=== PATIENT | female | born 1960 | race African-American/Black ===

== ENCOUNTER 2019-03-18 13:33 | Inpatient (IN) | payer BC ==
[2019-03-18 18:07] VITALS: BMI 23.6
--- NOTE | 2019-03-18 19:04 | HP ---
"COWS - Scale Resting Pulse: 1= [place] 81-100 Sweatin=Flushed/Facial Moisture Restless Observation: 0= Sits Still Pupil Size: 2= Moderately Dilated (Pupils = 4 mm) Bone or Joint Aches: 0= None (Pain is unrealted to withdrawal) Runny Nose/ Eye Tearin= None GI Upset > 30mins: 5=Frequent Vomit/Diarrhea Tremor Observation: 4= Gross Tremor/Twitching Yawning Observation: 0= None Anxiety or Irritability: 1=Feels Anxious/Irritable Goose Flesh Skin: 0=Smooth Skin COWS Score: 15 CIWA Score Nausea/Vomitin Muscle Tremors: 7-Severe,w/o Arm Extended Anxiety: 1-Mildly Anxious Agitation: 1-Slight > Activity Paroxysmal Sweats: 3 (Increased facial moisture) Orientation: 0-Oriented Tacttile Disturbances: 0-None Auditory Disturbances: 0-None Visual Disturbances: 0-None Headache: 3-Moderate CIWA-Ar Total Score: 21 - Admission Criteria OASAS Guidelines: Admission for Medically Managed Detox: Requires at least one of the followin. CIWA greater than 12 2. Seizures within the past 24 hours 3. Delirium tremens within the past 24 hours 4. Hallucinations within the past 24 hours 5. Acute intervention needed for co occurring medical disorder 6. Acute intervention needed for co occurring psychiatric disorder 7. Severe withdrawal that cannot be handled at a lower level of care (continued vomiting, continued diarrhea, abnormal vital signs) requiring intravenous medication and/or fluids 8. Patient presents the following: CIWA greater than 12 Admission Criteria Met: Admission criteria met Admitting History and Physical - Past Medical History ...LMP: 06/22/09 - Smoking History Smoking history: Never smoked Admission [facility] Chief Complaint: Here for help. I'm withdrawing and sick. Allergies/Adverse Reactions: Allergies Allergy/AdvReac Type Severity Reaction Status Date / Time No Known Allergies Allergy Verified 03/18/19 17:57 History of Present Illness: 58 yo presents w/ alcohol and heroin withdrawal symptoms, seeking detox. Utox: = RIC/MOP/BZO DIAMOND: 0.0 Heroin use began at age 44. Currently used 1 bag on Thursday03/14/19 - prior use was 3-5 bags/day. Alcohol use began at age 16. Currently drinks down to 1-2 pints/day. Last drank 03/17/19 Cocaine(crack) use began at age $100/day. Nicotine use intermittent since 20's. Current 1-2 cig Hx: multiple blackouts. Last 09/15/18. Seizure 02/23/19 - seen at [facility] -. States 6 seizure in past year. PMHx: HTN (CloNidine); Osteoarthritis (R) knee and hip. Patient w/ hx falls at home - uses a walker; pancreatitis (controlled); MHHx: Anxiety; Insomnia; Manic-Depression. Denies thoughts of harming self or others. On meds. States sees Psych @ [facility] SHx: Lives w/ mother. Unemployed. Denies legal issues Longest sobriety 2 years- 15 years ago. Search Terms: Diana Jeter, 1960 Search Date: 03/18/2019 07:00:12 PM The Drug Utilization Report below displays all of the controlled substance prescriptions, if any, that your patient has filled in the last twelve months. The information displayed on this report is compiled from pharmacy submissions to the Department, and accurately reflects the information as submitted by the pharmacies. This report was requested by: Lidia Giron | Reference #: [id number] There are no results for the search terms that you entered. Search Terms: Diana Jeter, 1960 Search Date: 03/18/2019 07:00:46 PM States Searched: [place], [place], [place], [place], [place], [place], [place], [place], [place] The Drug Utilization Report below displays the controlled substance prescriptions, if any, that were dispensed in the indicated state(s). The information displayed on this report is compiled from requests submitted to other states' PMPs, and accurately reflects the information as returned by them. Blank richardson indicate data not provided by other state. This report was requested by: Lidia Giron | Reference #: [id number] There are no results for the search terms that you entered. Exam Limitations: No Limitations - Ebola screening Have you traveled outside of the country in the last 21 days: No (N) Have you had contact with anyone from an Ebola affected area: No Have you been sick,other than usual withdrawal symptoms: No Do you have a fever: No - Review of Systems Constitutional: Chills, Changes in sleep (Difficulty falling and staying asleep - takes seroquel) EENT: reports: Blurred Vision Respiratory: reports: No Symptoms reported Cardiac: reports: No Symptoms Reported GI: reports: Diarrhea (Watery, orange/brown multiple episodes x past 2 days.), Vomiting (Vomited x 4 times today.) : reports: Burning (States evaluated at [facility] 03/17/19.) Musculoskeletal: reports: Joint Pain ((R) knee and (R) hip pain. Use walker for support.) Integumentary: reports: No Symptoms Reported Neuro: reports: Headache (Mod occipital throbbing headache), Numbness ([place] feet), Seizure (Multiple), Tremors Endocrine: reports: Increased Thirst Hematology: reports: Blood Clots (DVT 4 years ago - treated w/ blood thinners. Stopped years ago.) Psychiatric: reports: Agitated, Anxious, Depressed (Denies thoughts of harming self or others.) Patient History - Patient Medical History Hx Anemia: No Hx Asthma: No Hx Chronic Obstructive Pulmonary Disease (COPD): No Hx Cancer: No Hx Cardiac Disorders: No Hx Congestive Heart Failure: No Hx Hypertension: Yes Hx Hypercholesterolemia: No Hx Pacemaker: No HX Cerebrovascular Accident: No Hx Seizures: No Hx Dementia: No Hx Diabetes: No Hx Gastrointestinal Disorders: No Hx Liver Disease: No Hx Genitourinary Disorders: No Hx Sexually Transmitted Disorders: No Hx Renal Disease (ESRD): No Hx Thyroid Disease: No Hx Human Immunodeficiency Virus (HIV): No Hx Hepatitis C: No Hx Depression: Yes Hx Suicide Attempt: No Hx Bipolar Disorder: Yes Hx Schizophrenia: No - Patient Surgical History Past Surgical History: No Hx Neurologic Surgery: No Hx Cataract Extraction: No Hx Cardiac Surgery: No Hx Lung Surgery: No Hx Breast Surgery: No Hx Breast Biopsy: No Hx Abdominal Surgery: No Hx Appendectomy: No Hx Cholecystectomy: No Hx Genitourinary Surgery: No Hx Section: No Hx Orthopedic Surgery: No Anesthesia Reaction: No - PPD History Previous Implant?: Yes Documented Results: Negative w/proof Implanted On Prior [facility] Admission?: Yes Date: 04/29/12 Results: 05/02/12 PPD to be Administered?: Yes - Reproductive History Last Menstrual Period: 06/22/09 - Smoking Cessation Smoking history: Current some day smoker Have you smoked in the past 12 months: Yes Aproximately how many cigarettes per day: 2 Hx Chewing Tobacco Use: No Initiated information on smoking cessation: Yes 'Breaking Loose' booklet given: 03/18/19 - Substance & Tx. History Hx Alcohol Use: Yes Hx Substance Use: Yes Substance Use Type: Alcohol, Cocaine, Heroin Hx Substance Use Treatment: Yes (detox, rehab) - Substances abused Alcohol Substance route: Oral Frequency: Daily Amount used: 1PT OF VODKA Age of first use: 16 Date of last use: 03/18/19 Crack Substance route: Smoking Frequency: Daily Amount used: $80/DAY Age of first use: 38 Date of last use: 03/14/19 Heroin Substance route: Smoking Frequency: Daily Amount used: 1 BAG/DAY Age of first use: 44 Date of last use: 03/14/19 Admission Physical Exam BHS - Vital Signs Vital Signs: Vital Signs - 24 hr 03/18/19 18:02 Temperature 98.1 F Pulse Rate 92 H Respiratory 18 Rate Blood Pressure 128/94 - Physical General Appearance: Yes: Nourished, Moderate Distress, Thin, Tremorous (Gross tremors @ rest), Sweating (Increased facial moisture) HEENTM: Yes: EOMI, Hearing grossly Normal, Normocephalic, Normal Voice, EVA ( Pupils = 4 mm), Pharynx Normal Respiratory: Yes: Lungs Clear (Pulse Ox = 98 %), Normal Breath Sounds, No Respiratory Distress Neck: Yes: No masses,lesions,Nodules, Supple Breast: Yes: Breast Exam Deferred Cardiology: Yes: Regular Rhythm, Regular Rate, S1, S2 Abdominal: Yes: Flat, Soft, Increased Bowel Sounds Genitourinary: Yes: Burning (w/ urination) Back: Yes: Normal Inspection Musculoskeletal: Yes: full range of Motion, Gait Steady (w/ use of walker) Extremities: Yes: Normal Capillary Refill, Tremors (Gross tremors @ rest) Neurological: Yes: Fully Oriented, Alert, Motor Strength 5/5 Integumentary: Yes: Normal Color, Warm, Diaphoresis (Increased facial moisture) Lymphatic: Yes: Within Normal Limits - Diagnostic (1) Alcohol dependence with withdrawal, uncomplicated Current Visit: Yes Status: Acute (2) Opioid dependence with withdrawal Current Visit: Yes Status: Acute Comment: last opioid use 4 days prior to admission (3) Arthritis of joint of lower extremity Current Visit: Yes Status: Chronic Comment: Uses a walker (4) Essential hypertension Current Visit: Yes Status: Chronic (5) Cocaine dependence Current Visit: Yes Status: Chronic Cleared for Admission BHS - Detox or Rehab Detox Regimen/Protocol: Clonidine/Librium Claeared for Rehab Admission: No Breathalyzer - Breathalyzer Breathalyzer: 0 Urine Drug Screen - Test Device Lot number: [id number] Expiration date: 10/22/20 - Control Is test valid?: Yes - Results Drug screen NEGATIVE: No Urine drug screen results: RIC-Cocaine, MOP-Opiates, BZO-Benzodiazepines Inpatient Rehab Admission - Rehab Decision to Admit Inpatient rehab admission?: No"
[2019-03-18] MEDS ORDERED: MAGNESIUM HYDROX 2400MG/30ML ORAL SUSPENSION 30 ML CUP PO PRN (20:12)
[2019-03-18] MEDS ORDERED: MAG HYDROX/AL HYDROX/SIMETH 30 ML UNIT-DOSE CUP PO PRN (20:12)
[2019-03-18] MEDS ORDERED: NICOTINE POLACRILEX 2 MG GUM BUC PRN (20:12)
[2019-03-18] MEDS ORDERED: chlordiazePOXIDE HCL 10 MG CAPSULE PO PRN (20:12)
[2019-03-18] MEDS ORDERED: ACETAMINOPHEN 325 MG TABLET (FP) PO PRN ×2 (20:12)
[2019-03-18] MEDS ORDERED: MENTHOL/PHENOL 1 EACH UD MM PRN (20:12)
[2019-03-18] MEDS ORDERED: MAGNESIUM CITRATE 300 ML BOTTLE PO PRN (20:12)
[2019-03-18] MEDS ORDERED: ONDANSETRON *ODT* 4 MG TABLET SL PRN (20:31)
[2019-03-18] MEDS: DIVALPROEX SODIUM 500 MG TABLET E.C. PO SCH (21:33)
[2019-03-18] MEDS: chlordiazePOXIDE 5 MG CAPSULE PO SCH (21:33)
[2019-03-18] MEDS: cloNIDine HCL 0.1 MG TABLET PO SCH (21:33)
[2019-03-18] MEDS: THIAMINE HCL 100 MG TABLET (FP) PO SCH (22:03)
[2019-03-18] MEDS ORDERED: QUEtiapine FUMARATE 50 MG TABLET PO ONE (23:00)
[2019-03-19] MEDS: cloNIDine HCL 0.1 MG TABLET PO SCH ×3 (05:37→22:33)
[2019-03-19] MEDS: BISMUTH SUBSALICYLATE 524 MG/30 ML UD PO PRN ×3 (05:37→22:37)
[2019-03-19] MEDS: chlordiazePOXIDE 5 MG CAPSULE PO SCH ×3 (05:37→22:32)
[2019-03-19] MEDS: IBUPROFEN 400 MG TABLET (FP) PO PRN (05:38)
--- NOTE | 2019-03-19 10:23 | CONSULT ---
[facility] Psychiatric Consult - Data Date of interview: 03/19/19 Admission source: [facility] Identifying data: Readmission to [facility] for this 58 y/o AA female self- referred for detoxification treatment (ALONSO issues : alcohol, heroin, cocaine, nicotine). Interviewed at [address] [place] [address]. Patient is single, a mother of two, domiciled , unemployed and supported on SSI benefits. Substance Abuse History: Discussed with the patient. Details in current [facility] report as follows : Smoking history: Current some day smoker. Have you smoked in the past 12 months: Yes. Aproximately how many cigarettes per day: 2. Hx Chewing Tobacco Use: No. Initiated information on smoking cessation: Yes. ' Breaking Loose' booklet given: 03/18/19. - Substance & Tx. History. Hx Alcohol Use: Yes. Hx Substance Use: Yes. Substance Use Type: Alcohol, Cocaine , Heroin. Hx Substance Use Treatment: Yes (detox, rehab). - Substances abused. Alcohol. Substance route: Oral. Frequency: Daily. Amount used: 1PT OF VODKA. Age of first use: 16. Date of last use: 03/18/19. Crack. Substance route: Smoking. Frequency: Daily. Amount used: $80/DAY. Age of first use: 38. Date of last use: 03/14/19. Heroin. Substance route: Smoking. Frequency: Daily. Amount used: 1 BAG/DAY. Age of first use: 44. Date of last use: 03/14/19 Medical History: Remarkable for hypertension, seizure disorder, antecedent of pancreatitis and osteoarthritis. Patient ambulates with a walker. Psychiatric History: Patient admits to a history of 4-5 psychiatric hospitalizations. She is known to [place] [facility]. Diagnosed with Bipolar Disorder. Ms Jeter reports her medications as seroquel 100 mg/tid + 200 mg/hs + depakote 500 mg/bid + risperdal 4 mg/bid + klonopin (dose not recalled). Patient indicates that she was placed on this regimen during her stay at [facility]. Questionable adherence to OPD care (unclear about her outpatient prescriber). Patient admits to a distant history of suicide attempts (age 9 : wrist-cutting). Physical/Sexual Abuse/Trauma History: Patient denies. Additional Comment: Urine drug screen results: RIC-Cocaine, MOP-Opiates, BZO- Benzodiazepines. Noted. Mental Status Exam - Mental Status Exam Alert and Oriented to: Time, Place, Person Cognitive Function: Good Patient Appearance: Well Groomed Mood: Withdrawn, Hopeful Affect: Mood Congruent Patient Behavior: Fatigued, Cooperative Speech Pattern: Clear Voice Loudness: Normal Thought Process: Goal Oriented Thought Disorder: Not Present Hallucinations: Denies Suicidal Ideation: Denies Homicidal Ideation: Denies Insight/Judgement: Poor Sleep: Poorly, Difficulty falling asleep Appetite: Good Gait/Station: Other (walks with a walker) Psychiatric Findings - Problem List ([place] 1, 2,3) (1) Alcohol dependence with withdrawal, uncomplicated Current Visit: Yes Status: Acute (2) Opioid dependence with withdrawal Current Visit: Yes Status: Acute Comment: last opioid use 4 days prior to admission (3) Cocaine dependence Current Visit: Yes Status: Chronic (4) History of bipolar disorder Current Visit: Yes Status: Chronic (5) Insomnia Current Visit: Yes Status: Chronic - Initial Treatment Plan Initial Treatment Plan: Psychoeducation. Sleep hygiene. Detoxification. Medications reduced to avoid oversedation : seroquel 50 mg po bid. Risperdal is held. Side effects/benefits discussed with the patient. Ms Jeter agrees with this plan of care. She provided verbal consent to MD. Attempt made to contact [id number] for verification of medications ([phone]) : no response. Depakote level. Observation.
[2019-03-19] MEDS ORDERED: QUEtiapine FUMARATE 50 MG TABLET PO ONE (10:39)
[2019-03-19] MEDS: PRENATAL VITAMINS W/ FOLIC ACID TABLET (FP) PO SCH (11:03)
[2019-03-19] MEDS: DIVALPROEX SODIUM 500 MG TABLET E.C. PO SCH ×2 (11:03→22:32)
[2019-03-19 12:24] LABS: ALBUMIN 2.6 g/dl (3.4-5.0); BILIRUBIN,TOTAL 0.1 mg/dL (0.2-1); BLOOD UREA NITROGEN 20.7 mg/dL (7-18); CALCIUM 8.4 mg/dL (8.5-10.1); CREATININE 0.8 mg/dL (0.55-1.3); POTASSIUM 3.9 mmol/L (3.5-5.1); TOT PROT 6.2 g/dl (6.4-8.2)
[2019-03-19 12:33] LABS: HEMATOCRIT 27.8 % (32.4-45.2); HEMOGLOBIN 9.1 GM/dL (10.7-15.3); MCH 28.6 pg (25.7-33.7); MCHC 32.7 g/dl (32.0-36.0); MEAN CELL VOLUME 87.3 fl (80-96); MEAN PLT VOLUME 8.1 fl (7.5-11.1); PLATELET COUNT 253 K/MM3 (134-434); RBC 3.19 M/mm3 (3.60-5.2); RDW 18.4 % (11.6-15.6); WHITE BLOOD COUNT 4.5 K/mm3 (4.0-10.0)
--- NOTE | 2019-03-19 14:08 | EKG ---
Test Reason : Blood Pressure : / mmHG Vent. Rate : 071 BPM Atrial Rate : 071 BPM P-R Int : 126 ms QRS Dur : 092 ms QT Int : 394 ms P-R-T Axes : 018 055 054 degrees QTc Int : 428 ms NORMAL SINUS RHYTHM NORMAL ECG NO PREVIOUS ECGS AVAILABLE Confirmed by LYNDSEY GUEVARA, ART ([id number]) on 03/19/2019 2:08:30 PM Referred By: Confirmed By:ART SOLORIO MD
--- NOTE | 2019-03-19 17:57 | PN ---
S CIWA - CIWA Score Nausea/Vomitin (Diarrhea.) Muscle Tremors: None Anxiety: 3 Agitation: 2 Paroxysmal Sweats: No Perspiration Orientation: 0-Oriented Tacttile Disturbances: 2-Mild Itch/Numbness/Burn Auditory Disturbances: 0-None Visual Disturbances: 2-Mild Sensitivity Headache: 0-None Present CIWA-Ar Total Score: 12 BHS COWS - Scale Resting Pulse: 0= [place] 80 or Below Sweatin= Chills/Flushing Restless Observation: 0= Sits Still Pupil Size: 0= Normal to Room Light Bone or Joint Aches: 4=Acute Joint/Muscle Pain Runny Nose/ Eye Tearin= None GI Upset > 30mins: 2= Nausea/Diarrhea Tremor Observation of Outstretched Hands: 2= Slight Tremor Visible Yawning Observation: 1= 1-2x During Session Anxiety or Irritability: 2=Irritable/Anxious Goose Flesh Skin: 0=Smooth Skin COWS Score: 12 S Progress Note (SOAP) Subjective: Body Aches, Eye Tearing, Diarrhea, Tremors. Objective: PATIENT A & O X 3, OBSERVED AMBULATING ON DETOX UNIT UNASSISTED. IN NO ACUTE DISTRESS. 03/19/19 17:57 Vital Signs Temperature 98.1 F 03/19/19 10:00 Pulse Rate 80 03/19/19 10:00 Respiratory Rate 18 03/19/19 10:00 Blood Pressure 118/76 03/19/19 10:00 O2 Sat by Pulse Oximetry (%) Laboratory Tests 03/19/19 03/19/19 03/19/19 07:55 07:55 07:55 WBC 4.5 RBC 3.19 L Hgb 9.1 L Hct 27.8 L D MCV 87.3 MCH 28.6 D MCHC 32.7 RDW 18.4 H Plt Count 253 D MPV 8.1 Sodium 142 Potassium 3.9 Chloride 108 H Carbon Dioxide 28 Anion Gap 7 L BUN 20.7 H Creatinine 0.8 Est GFR (CKD-EPI)AfAm 93.53 Est GFR (CKD-EPI)NonAf 80.70 Random Glucose 109 H Calcium 8.4 L Total Bilirubin 0.1 L AST 13 L ALT 9 L Alkaline Phosphatase 103 Total Protein 6.2 L Albumin 2.6 L Valproic Acid 7.4 L RPR Titer 03/19/19 07:55 WBC RBC Hgb Hct MCV MCH MCHC RDW Plt Count MPV Sodium Potassium Chloride Carbon Dioxide Anion Gap BUN Creatinine Est GFR (CKD-EPI)AfAm Est GFR (CKD-EPI)NonAf Random Glucose Calcium Total Bilirubin AST ALT Alkaline Phosphatase Total Protein Albumin Valproic Acid RPR Titer Nonreactive LABS NOTED. Assessment: 03/19/19 17:58 WITHDRAWAL SYMPTOMS. ANEMIA. 03/19/19 18:00 Plan: CONTINUE DETOX. INCREASE DAILY PO WATER INTAKE. PATIENT IS CURRENTLY RECEIVING DAILY MVI CONTAINING B VITAMINS AND IRON WHILE ADMITTED FOR DETOX. REPEAT CBC TOMORROW AM TO SEE IF ANY CHANGE FORM DETOX ADMISSION CBC RESULTS.
[2019-03-19] MEDS ORDERED: QUEtiapine FUMARATE 100 MG TABLET (FP) PO SCH (22:00)
[2019-03-19] MEDS: METHOCARBAMOL 500 MG TABLET PO PRN (22:32)
[2019-03-19] MEDS: METHYL SALICYLATE/MENTHOL OINT 30 GM TUBE TP SCH (22:32)
[2019-03-19] MEDS: QUEtiapine FUMARATE 50 MG TABLET PO SCH (22:32)
[2019-03-19] MEDS: THIAMINE HCL 100 MG TABLET (FP) PO SCH (22:33)
[2019-03-19] MEDS: MELATONIN 5 MG TABLETS PO PRN (22:36)
[2019-03-20] MEDS: cloNIDine HCL 0.1 MG TABLET PO SCH ×3 (06:00→22:05)
[2019-03-20] MEDS: chlordiazePOXIDE 5 MG CAPSULE PO SCH ×3 (06:00→22:04)
[2019-03-20] MEDS: BISMUTH SUBSALICYLATE 524 MG/30 ML UD PO PRN ×3 (06:01→16:34)
[2019-03-20] MEDS: METHOCARBAMOL 500 MG TABLET PO PRN ×3 (06:02→22:07)
[2019-03-20] MEDS: IBUPROFEN 400 MG TABLET (FP) PO PRN ×3 (06:24→22:07)
[2019-03-20 10:06] LABS: BASO % 0.8 % (0-2.0); EOS % 6.3 % (0-4.5); HEMATOCRIT 27.7 % (32.4-45.2); HEMOGLOBIN 8.9 GM/dL (10.7-15.3); LYMPH % 40.1 % (8-40); MCH 28.2 pg (25.7-33.7); MCHC 32.1 g/dl (32.0-36.0); MEAN CELL VOLUME 87.8 fl (80-96); MEAN PLT VOLUME 8.2 fl (7.5-11.1); NEUT % 44.8 % (42.8-82.8); PLATELET COUNT 241 K/MM3 (134-434); RBC 3.15 M/mm3 (3.60-5.2); RDW 17.8 % (11.6-15.6); WHITE BLOOD COUNT 4.2 K/mm3 (4.0-10.0)
[2019-03-20] MEDS: DIVALPROEX SODIUM 500 MG TABLET E.C. PO SCH ×2 (10:48→22:05)
[2019-03-20] MEDS: METHYL SALICYLATE/MENTHOL OINT 30 GM TUBE TP SCH ×2 (10:48→22:04)
[2019-03-20] MEDS: PRENATAL VITAMINS W/ FOLIC ACID TABLET (FP) PO SCH (10:48)
--- NOTE | 2019-03-20 14:18 | PN ---
[facility] CIWA - CIWA Score Nausea/Vomitin-Mild Nausea/No Vomiting Muscle Tremors: 3 Anxiety: 3 Agitation: 3 Paroxysmal Sweats: 1-Minimal Palms Moist Orientation: 0-Oriented Tacttile Disturbances: 0-None Auditory Disturbances: 0-None Visual Disturbances: 0-None Headache: 0-None Present CIWA-Ar Total Score: 11 S Progress Note (SOAP) Subjective: 58 years old female admitted on 03/18/19 for alcohol withdrawal sx management treated wtih librium detox regimen patient tolerate well at this time positive opioid urine tox upon admission due to patient is using one bag of opioid and last used 03/14/19 no opioid detox regimen necessary at this time patient is alert oriented x 3 resting on bed limited conversation with staff Objective: 03/20/19 14:19 Vital Signs Temperature 98.8 F 03/20/19 13:08 Pulse Rate 87 03/20/19 13:08 Respiratory Rate 18 03/20/19 13:08 Blood Pressure 142/91 03/20/19 13:08 O2 Sat by Pulse Oximetry (%) Laboratory Last Values WBC 4.2 K/mm3 (4.0-10.0) 03/20/19 07:40 RBC 3.15 M/mm3 (3.60-5.2) L 03/20/19 07:40 Hgb 8.9 GM/dL (10.7-15.3) L 03/20/19 07:40 Hct 27.7 % (32.4-45.2) L 03/20/19 07:40 MCV 87.8 fl (80-96) 03/20/19 07:40 MCH 28.2 pg (25.7-33.7) 03/20/19 07:40 MCHC 32.1 g/dl (32.0-36.0) 03/20/19 07:40 RDW 17.8 % (11.6-15.6) H 03/20/19 07:40 Plt Count 241 K/MM3 (134-434) 03/20/19 07:40 MPV 8.2 fl (7.5-11.1) 03/20/19 07:40 Absolute Neuts (auto) 1.9 K/mm3 (1.5-8.0) 03/20/19 07:40 Neutrophils % 44.8 % (42.8-82.8) 03/20/19 07:40 Lymphocytes % 40.1 % (8-40) H 03/20/19 07:40 Monocytes % 8.0 % (3.8-10.2) 03/20/19 07:40 Eosinophils % 6.3 % (0-4.5) H 03/20/19 07:40 Basophils % 0.8 % (0-2.0) 03/20/19 07:40 Nucleated RBC % 0 % (0-0) 03/20/19 07:40 Sodium 142 mmol/L (136-145) 03/19/19 07:55 Potassium 3.9 mmol/L (3.5-5.1) 03/19/19 07:55 Chloride 108 mmol/L (98-107) H 03/19/19 07:55 Carbon Dioxide 28 mmol/L (21-32) 03/19/19 07:55 Anion Gap 7 MMOL/L (8-16) L 03/19/19 07:55 BUN 20.7 mg/dL (7-18) H 03/19/19 07:55 Creatinine 0.8 mg/dL (0.55-1.3) 03/19/19 07:55 Est GFR (CKD-EPI)AfAm 93.53 03/19/19 07:55 Est GFR (CKD-EPI)NonAf 80.70 03/19/19 07:55 Random Glucose 109 mg/dL (74-106) H 03/19/19 07:55 Calcium 8.4 mg/dL (8.5-10.1) L 03/19/19 07:55 Total Bilirubin 0.1 mg/dL (0.2-1) L 03/19/19 07:55 AST 13 U/L (15-37) L 03/19/19 07:55 ALT 9 U/L (13-61) L 03/19/19 07:55 Alkaline Phosphatase 103 U/L (45-117) 03/19/19 07:55 Total Protein 6.2 g/dl (6.4-8.2) L 03/19/19 07:55 Albumin 2.6 g/dl (3.4-5.0) L 03/19/19 07:55 Valproic Acid 7.4 ug/mL (50-100) L 03/19/19 07:55 RPR Titer Nonreactive (NONREACTIVE) 03/19/19 07:55 lab noted anemia 03/20/19 14:21 ferrous sulfate Assessment: 03/20/19 14:21 alcohol withdrawal sx Plan: continue librium detox regimen
[2019-03-20] MEDS: FERROUS SO4 325 MG TABLET (FP) PO SCH (14:47)
[2019-03-20] MEDS: THIAMINE HCL 100 MG TABLET (FP) PO SCH (22:04)
[2019-03-20] MEDS: QUEtiapine FUMARATE 50 MG TABLET PO SCH (22:05)
[2019-03-20] MEDS: MELATONIN 5 MG TABLETS PO PRN (22:08)
[2019-03-21] MEDS ORDERED: chlordiazePOXIDE HCL 10 MG CAPSULE PO PRN
[2019-03-21] MEDS ORDERED: chlordiazePOXIDE HCL 10 MG CAPSULE PO SCH (05:00)
[2019-03-21] MEDS: IBUPROFEN 400 MG TABLET (FP) PO PRN ×2 (05:05→17:35)
[2019-03-21] MEDS: METHOCARBAMOL 500 MG TABLET PO PRN ×3 (05:05→22:23)
[2019-03-21] MEDS: BISMUTH SUBSALICYLATE 524 MG/30 ML UD PO PRN ×2 (05:07→17:36)
[2019-03-21] MEDS ORDERED: diazePAM 5 MG TABLET PO PRN (09:23)
--- NOTE | 2019-03-21 09:31 | PN ---
S CIWA - CIWA Score Nausea/Vomitin-No Nausea/No Vomiting Muscle Tremors: 1-None Visible, but [place] Anxiety: 3 Agitation: 1-Slight > Activity Paroxysmal Sweats: 1-Minimal Palms Moist Orientation: 0-Oriented Tacttile Disturbances: 0-None Auditory Disturbances: 0-None Visual Disturbances: 0-None Headache: 0-None Present CIWA-Ar Total Score: 6 BHS Progress Note (SOAP) Subjective: 58 years old female admitted on 03/18/19 for alcohol withdrawal sx management treated with librium detox regimen patient requests valium detox regimen that valium works better for her alcohol withdrawal sx discontinue librium regimen begin valium regimen patient received one dose of librium around 6 am today will receive valium 5 mg around 2 pm today patient scheduled for discharge 03/22/19 discuss aftercare with patient Objective: 03/21/19 09:30 Vital Signs Temperature 97.5 F L 03/21/19 09:22 Pulse Rate 85 03/21/19 09:22 Respiratory Rate 18 03/21/19 09:22 Blood Pressure 146/80 03/21/19 09:22 O2 Sat by Pulse Oximetry (%) Laboratory Last Values WBC 4.2 K/mm3 (4.0-10.0) 03/20/19 07:40 RBC 3.15 M/mm3 (3.60-5.2) L 03/20/19 07:40 Hgb 8.9 GM/dL (10.7-15.3) L 03/20/19 07:40 Hct 27.7 % (32.4-45.2) L 03/20/19 07:40 MCV 87.8 fl (80-96) 03/20/19 07:40 MCH 28.2 pg (25.7-33.7) 03/20/19 07:40 MCHC 32.1 g/dl (32.0-36.0) 03/20/19 07:40 RDW 17.8 % (11.6-15.6) H 03/20/19 07:40 Plt Count 241 K/MM3 (134-434) 03/20/19 07:40 MPV 8.2 fl (7.5-11.1) 03/20/19 07:40 Absolute Neuts (auto) 1.9 K/mm3 (1.5-8.0) 03/20/19 07:40 Neutrophils % 44.8 % (42.8-82.8) 03/20/19 07:40 Lymphocytes % 40.1 % (8-40) H 03/20/19 07:40 Monocytes % 8.0 % (3.8-10.2) 03/20/19 07:40 Eosinophils % 6.3 % (0-4.5) H 03/20/19 07:40 Basophils % 0.8 % (0-2.0) 03/20/19 07:40 Nucleated RBC % 0 % (0-0) 03/20/19 07:40 Sodium 142 mmol/L (136-145) 03/19/19 07:55 Potassium 3.9 mmol/L (3.5-5.1) 03/19/19 07:55 Chloride 108 mmol/L (98-107) H 03/19/19 07:55 Carbon Dioxide 28 mmol/L (21-32) 03/19/19 07:55 Anion Gap 7 MMOL/L (8-16) L 03/19/19 07:55 BUN 20.7 mg/dL (7-18) H 03/19/19 07:55 Creatinine 0.8 mg/dL (0.55-1.3) 03/19/19 07:55 Est GFR (CKD-EPI)AfAm 93.53 03/19/19 07:55 Est GFR (CKD-EPI)NonAf 80.70 03/19/19 07:55 Random Glucose 109 mg/dL (74-106) H 03/19/19 07:55 Calcium 8.4 mg/dL (8.5-10.1) L 03/19/19 07:55 Total Bilirubin 0.1 mg/dL (0.2-1) L 03/19/19 07:55 AST 13 U/L (15-37) L 03/19/19 07:55 ALT 9 U/L (13-61) L 03/19/19 07:55 Alkaline Phosphatase 103 U/L (45-117) 03/19/19 07:55 Total Protein 6.2 g/dl (6.4-8.2) L 03/19/19 07:55 Albumin 2.6 g/dl (3.4-5.0) L 03/19/19 07:55 Valproic Acid 7.4 ug/mL (50-100) L 03/19/19 07:55 RPR Titer Nonreactive (NONREACTIVE) 03/19/19 07:55 lab noted anemia continue ferrous sulfate 03/21/19 09:32 Assessment: 03/21/19 09:32 alcohol withdrawaL sx Plan: continue valium detox regimen
[2019-03-21] MEDS: FERROUS SO4 325 MG TABLET (FP) PO SCH (10:26)
[2019-03-21] MEDS: PRENATAL VITAMINS W/ FOLIC ACID TABLET (FP) PO SCH (10:26)
[2019-03-21] MEDS: cloNIDine HCL 0.1 MG TABLET PO SCH ×2 (10:26→22:23)
[2019-03-21] MEDS: DIVALPROEX SODIUM 500 MG TABLET E.C. PO SCH ×2 (10:26→22:22)
[2019-03-21] MEDS: METHYL SALICYLATE/MENTHOL OINT 30 GM TUBE TP SCH ×2 (10:26→22:40)
[2019-03-21] MEDS: diazePAM 5 MG TABLET PO SCH ×2 (13:45→22:22)
[2019-03-21] MEDS: THIAMINE HCL 100 MG TABLET (FP) PO SCH (22:22)
[2019-03-21] MEDS: MELATONIN 5 MG TABLETS PO PRN (22:23)
[2019-03-22] MEDS ORDERED: diazePAM 5 MG TABLET PO ONE (05:00)
[2019-03-22] MEDS ORDERED: chlordiazePOXIDE HCL 10 MG CAPSULE PO ONE (05:00)
[2019-03-22] MEDS: METHOCARBAMOL 500 MG TABLET PO PRN ×3 (05:29→22:12)
--- NOTE | 2019-03-22 09:55 | PN ---
S CIWA - CIWA Score Nausea/Vomitin-No Nausea/No Vomiting Muscle Tremors: 1-None Visible, but [place] Anxiety: 2 Agitation: 1-Slight > Activity Paroxysmal Sweats: No Perspiration Orientation: 0-Oriented Tacttile Disturbances: 0-None Auditory Disturbances: 0-None Visual Disturbances: 0-None Headache: 0-None Present CIWA-Ar Total Score: 4 BHS Progress Note (SOAP) Subjective: 58 years old female admitted on 03/18/19 for alcohol withdrawal sx management treated with librium detox regimen report no works well continue sweating and trouble sleep at night patient appears tired resting on bed denies suicidal ideation case discuss with counselor patient is under the medical supervision today and tomorrow transportation ambulating on hallway with walker steady gait encourage change position slowly Objective: 03/22/19 10:07 Vital Signs Temperature 97.1 F L 03/22/19 09:14 Pulse Rate 75 03/22/19 09:14 Respiratory Rate 18 03/22/19 09:14 Blood Pressure 149/95 03/22/19 09:14 O2 Sat by Pulse Oximetry (%) Laboratory Last Values WBC 4.2 K/mm3 (4.0-10.0) 03/20/19 07:40 RBC 3.15 M/mm3 (3.60-5.2) L 03/20/19 07:40 Hgb 8.9 GM/dL (10.7-15.3) L 03/20/19 07:40 Hct 27.7 % (32.4-45.2) L 03/20/19 07:40 MCV 87.8 fl (80-96) 03/20/19 07:40 MCH 28.2 pg (25.7-33.7) 03/20/19 07:40 MCHC 32.1 g/dl (32.0-36.0) 03/20/19 07:40 RDW 17.8 % (11.6-15.6) H 03/20/19 07:40 Plt Count 241 K/MM3 (134-434) 03/20/19 07:40 MPV 8.2 fl (7.5-11.1) 03/20/19 07:40 Absolute Neuts (auto) 1.9 K/mm3 (1.5-8.0) 03/20/19 07:40 Neutrophils % 44.8 % (42.8-82.8) 03/20/19 07:40 Lymphocytes % 40.1 % (8-40) H 03/20/19 07:40 Monocytes % 8.0 % (3.8-10.2) 03/20/19 07:40 Eosinophils % 6.3 % (0-4.5) H 03/20/19 07:40 Basophils % 0.8 % (0-2.0) 03/20/19 07:40 Nucleated RBC % 0 % (0-0) 03/20/19 07:40 Sodium 142 mmol/L (136-145) 03/19/19 07:55 Potassium 3.9 mmol/L (3.5-5.1) 03/19/19 07:55 Chloride 108 mmol/L (98-107) H 03/19/19 07:55 Carbon Dioxide 28 mmol/L (21-32) 03/19/19 07:55 Anion Gap 7 MMOL/L (8-16) L 03/19/19 07:55 BUN 20.7 mg/dL (7-18) H 03/19/19 07:55 Creatinine 0.8 mg/dL (0.55-1.3) 03/19/19 07:55 Est GFR (CKD-EPI)AfAm 93.53 03/19/19 07:55 Est GFR (CKD-EPI)NonAf 80.70 03/19/19 07:55 Random Glucose 109 mg/dL (74-106) H 03/19/19 07:55 Calcium 8.4 mg/dL (8.5-10.1) L 03/19/19 07:55 Total Bilirubin 0.1 mg/dL (0.2-1) L 03/19/19 07:55 AST 13 U/L (15-37) L 03/19/19 07:55 ALT 9 U/L (13-61) L 03/19/19 07:55 Alkaline Phosphatase 103 U/L (45-117) 03/19/19 07:55 Total Protein 6.2 g/dl (6.4-8.2) L 03/19/19 07:55 Albumin 2.6 g/dl (3.4-5.0) L 03/19/19 07:55 Valproic Acid 7.4 ug/mL (50-100) L 03/19/19 07:55 RPR Titer Nonreactive (NONREACTIVE) 03/19/19 07:55 lab noted Assessment: 03/22/19 10:08 alcohol withdrawal sxs Plan: continue medically supervised x 1 day
[2019-03-22] MEDS: DIVALPROEX SODIUM 500 MG TABLET E.C. PO SCH ×2 (10:28→22:12)
[2019-03-22] MEDS: METHYL SALICYLATE/MENTHOL OINT 30 GM TUBE TP SCH ×2 (10:28→22:17)
[2019-03-22] MEDS: FERROUS SO4 325 MG TABLET (FP) PO SCH (10:28)
[2019-03-22] MEDS: PRENATAL VITAMINS W/ FOLIC ACID TABLET (FP) PO SCH (10:28)
[2019-03-22] MEDS: cloNIDine HCL 0.1 MG TABLET PO SCH ×2 (10:28→22:12)
[2019-03-22] MEDS: BISMUTH SUBSALICYLATE 524 MG/30 ML UD PO PRN (10:29)
[2019-03-22] MEDS: IBUPROFEN 400 MG TABLET (FP) PO PRN (10:29)
--- NOTE | 2019-03-22 18:40 | PN ---
[facility] Progress Note Note: Psychiatry Attending's note (follow-up) : Met with the patient during the day. Ms Jeter is usually seen lying in bed. Moves around with a walker. Patient asked chief writer to resume seroquel. At the specific dose of 100 mg at bedtime. Seems to be doing quite well on current regimen. No falls. Patient denies dizziness, drowziness or sedation. Mood remains stable. No psychosis. Coherent thought processes. Patient has consistently denied suicidal ideation, intent or plan. She remains future-oriented, pleasant on approach and cooperative. Vitals are normal. Valproic acid on admission = 7.4 (suggestive of non-adherence ). Will resume seroquel 50 mg po hs (patient's request). Informed consent : secured. Senior Underwriter called [id number] at [phone] for verification of medications : no response.
[2019-03-22] MEDS ORDERED: QUEtiapine FUMARATE 50 MG TABLET PO SCH (22:00)
[2019-03-22] MEDS: THIAMINE HCL 100 MG TABLET (FP) PO SCH (22:12)
[2019-03-22] MEDS: MELATONIN 5 MG TABLETS PO PRN (22:13)
[2019-03-23 09:18] VITALS: BP 128/85; PULSE 106; TEMP 97.2
--- NOTE | 2019-03-23 09:56 | DS ---
[facility] Detox Discharge Summary Admission Date: 03/18/19 Discharge Date: 03/23/19 - History Present History: Alcohol Dependence Additional Comments: 58 years old female admitted on 03/18/19 for alcohol withdrawal sx management managed with librium at first changed to valium patient tolerated wll alert oriented x 3 cardiac S1S2 regular rate rhyth respiratory clear lung bilaterally on auscultation ambulating with walker steady gait skin warm dry - Physical Exam Results Vital Signs: Vital Signs Temperature 97.2 F L 03/23/19 09:17 Pulse Rate 106 H 03/23/19 09:17 Respiratory Rate 20 03/23/19 09:17 Blood Pressure 128/85 03/23/19 09:17 O2 Sat by Pulse Oximetry (%) Pertinent Admission Physical Exam Findings: alcohol withdrawal sx Laboratory Last Values WBC 4.2 K/mm3 (4.0-10.0) 03/20/19 07:40 RBC 3.15 M/mm3 (3.60-5.2) L 03/20/19 07:40 Hgb 8.9 GM/dL (10.7-15.3) L 03/20/19 07:40 Hct 27.7 % (32.4-45.2) L 03/20/19 07:40 MCV 87.8 fl (80-96) 03/20/19 07:40 MCH 28.2 pg (25.7-33.7) 03/20/19 07:40 MCHC 32.1 g/dl (32.0-36.0) 03/20/19 07:40 RDW 17.8 % (11.6-15.6) H 03/20/19 07:40 Plt Count 241 K/MM3 (134-434) 03/20/19 07:40 MPV 8.2 fl (7.5-11.1) 03/20/19 07:40 Absolute Neuts (auto) 1.9 K/mm3 (1.5-8.0) 03/20/19 07:40 Neutrophils % 44.8 % (42.8-82.8) 03/20/19 07:40 Lymphocytes % 40.1 % (8-40) H 03/20/19 07:40 Monocytes % 8.0 % (3.8-10.2) 03/20/19 07:40 Eosinophils % 6.3 % (0-4.5) H 03/20/19 07:40 Basophils % 0.8 % (0-2.0) 03/20/19 07:40 Nucleated RBC % 0 % (0-0) 03/20/19 07:40 Sodium 142 mmol/L (136-145) 03/19/19 07:55 Potassium 3.9 mmol/L (3.5-5.1) 03/19/19 07:55 Chloride 108 mmol/L (98-107) H 03/19/19 07:55 Carbon Dioxide 28 mmol/L (21-32) 03/19/19 07:55 Anion Gap 7 MMOL/L (8-16) L 03/19/19 07:55 BUN 20.7 mg/dL (7-18) H 03/19/19 07:55 Creatinine 0.8 mg/dL (0.55-1.3) 03/19/19 07:55 Est GFR (CKD-EPI)AfAm 93.53 03/19/19 07:55 Est GFR (CKD-EPI)NonAf 80.70 03/19/19 07:55 Random Glucose 109 mg/dL (74-106) H 03/19/19 07:55 Calcium 8.4 mg/dL (8.5-10.1) L 03/19/19 07:55 Total Bilirubin 0.1 mg/dL (0.2-1) L 03/19/19 07:55 AST 13 U/L (15-37) L 03/19/19 07:55 ALT 9 U/L (13-61) L 03/19/19 07:55 Alkaline Phosphatase 103 U/L (45-117) 03/19/19 07:55 Total Protein 6.2 g/dl (6.4-8.2) L 03/19/19 07:55 Albumin 2.6 g/dl (3.4-5.0) L 03/19/19 07:55 Valproic Acid 7.4 ug/mL (50-100) L 03/19/19 07:55 RPR Titer Nonreactive (NONREACTIVE) 03/19/19 07:55 lab noted - Treatment Hospital Course: Detox Protocol Followed, Detoxed Safely, Responded well, Discharged Condition Good, Rehab Referral Accepted Patient has Accepted a Rehab Referral to: [facility] - Medication Discharge Medications: Ambulatory Orders Divalproex [Depakote -] 500 mg PO BID 03/18/19 Folic Acid - 1 mg PO DAILY 03/18/19 Quetiapine Fumarate [Seroquel -] 100 mg PO BID 03/18/19 Quetiapine Fumarate [Seroquel -] 200 mg PO HS 03/18/19 Risperidone 4 mg PO BID 03/18/19 - Diagnosis (1) Alcohol dependence with withdrawal, uncomplicated Status: Acute (2) Anemia Status: Chronic Qualifiers: Anemia type: iron deficiency Iron deficiency anemia type: unspecified iron deficiency Qualified Code(s): D50.9 - Iron deficiency anemia, unspecified (3) Essential hypertension Status: Chronic (4) Walker as ambulation aid Status: Chronic - AMA Did Patient Leave Against Medical Advice: No CIWA Score - CIWA Score Nausea/Vomitin-No Nausea/No Vomiting Muscle Tremors: 1-None Visible, but [place] Anxiety: 0-No Anxiety, at Ease Agitation: 0-Normal Activity Paroxysmal Sweats: No Perspiration Orientation: 0-Oriented Tacttile Disturbances: 0-None Auditory Disturbances: 0-None Visual Disturbances: 0-None Headache: 0-None Present CIWA-Ar Total Score: 1
== END 2019-03-23 09:33 | disposition home or self-care (01) | DRG 773 ==
LOC: YASAS 13:33 → Y3N 20:15
PROVIDERS: ADMIT Allergy & Immunology; ATTEND Allergy & Immunology
PROC: HZ2ZZZZ Detoxification Services for Substance Abuse Treatment (ICD-10-PCS; principal; 2019-03-18)
DX: F11.23 Opioid dependence with withdrawal (principal); F10.230 Alcohol dependence with withdrawal, uncomplicated; F14.20 Cocaine dependence, uncomplicated; F17.210 Nicotine dependence, cigarettes, uncomplicated; I10 Essential (primary) hypertension; D50.9 Iron deficiency anemia, unspecified; G47.00 Insomnia, unspecified; G40.909 Epilepsy, unspecified, not intractable, without status epilepticus; M16.11 Unilateral primary osteoarthritis, right hip; M17.11 Unilateral primary osteoarthritis, right knee; R29.6 Repeated falls; R26.2 Difficulty in walking, not elsewhere classified; Z99.89 Dependence on other enabling machines and devices; Z86.19 Personal history of other infectious and parasitic diseases
CPT/HCPCS: 36415; 80053; 80164; 85025; 85027; 86593; 93005; 93010; J0735